=== PATIENT | female | born 1990 | race Caucasian/White ===

== ENCOUNTER 2017-04-19 16:49 | Emergency (ER) | payer OTHER ==
[~2017-04-19] VITALS: Ht 160 cm; Wt 77.1 kg
[2017-04-19] MEDS ORDERED: LEXAPRO 10 MG T10 M2 PO (17:13)
[2017-04-19] MEDS ORDERED: RECLIPSEN1 EACH PO (17:14)
== END 2017-04-19 17:30 | disposition home or self-care (01) ==
LOC: ER 16:49
DX: J02.9 Acute pharyngitis, unspecified (principal); R11.2 Nausea with vomiting, unspecified; R19.7 Diarrhea, unspecified